=== PATIENT | male | born 1940 | race Caucasian/White ===

== ENCOUNTER 2019-08-10 20:41 | Emergency (ER) | payer MEDICARE, OTHER, SELFPAY ==
[2019-08-10 20:51] VITALS: BP 109/57; PULSE 85; RESP 19; TEMP 38.4; O2SAT 94; BMI 19.4
--- NOTE | 2019-08-10 20:56 | XRR_ITS ---
PROCEDURE INFORMATION: Exam: XR Chest, 2 Views Exam date and time: 08/10/2019 9:25 PM Age: 78 years old Clinical indication: Cough and fever; Prior surgery; Surgery date: 6+ months; Surgery type: Bypass, pacemaker; Patient HX: Cough 1 week, fever 2 days, SOB today; Additional info: Fever/cough TECHNIQUE: Imaging protocol: XR of the chest Views: 2 views. COMPARISON: CR Chest 2 views* [id number] 05/12/2017 3:17 PM FINDINGS: Tubes, catheters and devices: Pacemaker via a left subclavian approach. Lungs: Emphysema Mild airspace disease left lung base adjacent to the moderate subpulmonic effusion. Pleural space: Unremarkable. No pleural effusion. No pneumothorax. Heart/Mediastinum: Surgical clips left hilar region and infrahilar region Bones/joints: Prior sternotomy. XR/XR chest 2V* [id number] IMPRESSION: Mild airspace disease left lung base adjacent to the moderate subpulmonic effusion.
[2019-08-10 21:27] LABS: Basophils # 0.1 10^3/uL (0.0-0.1); Basophils % 0.5 %; Eosinophils % 0.1 %; Hematocrit 46.8 % (42.0-52.0); Hemoglobin 15.4 g/dL (11.7-16.6); Lymphocytes # 1.1 10^3/uL (0.8-4.8); Lymphocytes % 7.4 %; Mean Corpuscular HGB Conc 32.9 g/dL (30.0-36.0); Mean Corpuscular Hemoglobin 31.7 pg (28.0-34.0); Mean Corpuscular Volume 96.3 fL (80-94); Mean Platelet Volume 10.1 fL (7.4-10.4); Monocytes # 0.9 10^3/uL (0.2-0.9); Monocytes % 5.9 %; Neutrophils # 12.7 10^3/uL (1.8-7.7); Neutrophils % 85.6 %; Nucleated Red Blood Cells % 0 %; Platelet Count 213 10^3/cmm (130-400); Red Blood Count 4.86 10^6/uL (4.1-5.3); Red Cell Distribution Width 11.9 % (12.1-15.1); White Blood Count 14.8 10^3/uL (4.0-10.0)
[2019-08-10 21:34] LABS: Alanine Aminotransferase 14 U/L (0-41); Alkaline Phosphatase 112 IU/L (40-130); Aspartate Amino Transferase 22 U/L (0-40); Blood Urea Nitrogen 13 mg/dL (8-23); Calcium 9.3 mg/dL (8.5-10.5); Carbon Dioxide 24 mmol/L (22-29); Chloride 96 mmol/L (98-107); Globulin 2.8 g/dL (1.3-4.6); Glucose 117 mg/dL (65-115); Sodium 133 mmol/L (136-145); Total Bilirubin 0.6 mg/dL (0.15-1.2); Total Protein 6.8 g/dL (6.6-8.7)
[2019-08-10 21:43] VITALS: BP 87/57; PULSE 84; RESP 20; TEMP 38.4; O2SAT 93
--- NOTE | 2019-08-10 21:43 | ED_ITS ---
Entered by Debbie Key, acting as scribe for Jossy Fields Angela Aug 10, 2019 20:41 HPI - Fever General: Chief Complaint: Fever Stated Complaint: COUGH/CONGESTION Time Seen by Provider: 08/10/19 21:15 Source: patient and family Mode of arrival: ambulatory Limitations: no limitations History of Present Illness: HPI Narrative: Mr. Brito is a nice 78-year-old male who comes in the report of cough, congestion and subjective fever at home. His symptoms have been going on for over a week but his fever just started today and was recorded at 99.6 by family. His cough is productive of yellow phlegm and he feels like he has drainage from his sinuses. Patient denies any chest pain, shortness of breath, headache, neck pain or stiffness or any other complaints. MD elicited complaint: fever and other (cough) Onset (ago): day(s) (4 days ago) Exacerbating factors: nothing Relieving factors: nothing Associated symptoms: Reports chills, cough and other (fever); Deny abdominal pain, back/flank pain, chest pain, confusion, diarrhea, dysuria, extremity pain, headache(s), nausea or vomiting Treatments prior to arrival fever: none Review of Systems General: Reports: other (negative unless marked) Const: Reports: chills Eyes: Denies: change in vision or blurry vision ENMT: Denies: throat pain, painful swallowing, hoarseness, ear pain, ear discharge, Change in hearing or nasal discharge Card: Denies: chest pain, palpitations, irregular heart rhythm or syncope Resp: Reports: productive cough; Denies: shortness of breath, wheezing, coughing up blood or chest congestion GI: Denies: abdominal pain, nausea, vomiting, vomiting blood, coffee grounds in vomit, diarrhea, constipation, cramping, blood in stool or black tarry stool : Denies: flank pain, difficulty urinating, painful urination, urinary frequency, urinary urgency, decreased urine ouput, urinary incontinence or blood in urine Musc: Denies: neck pain, back pain, extremity pain, extremity swelling, joint pain, joint swelling, joint warmth or joint stiffness Skin/Breast: Denies: rash, skin tenderness or yellow skin Neuro: Denies: headache, numbness in extremities, weakness in extremities, changes in sensation, lack of coordination, difficulty walking, dizziness, vertigo or confusion Endo: Denies: excessive thirst, tired all the time, cold intolerance, excessive sweating, flushing or hot flashes Andrew/Lymph: Denies: easy bruising, easy bleeding, petechiae or enlarged lymph nodes All/Imm: Denies: hives, throat swelling, tongue swelling, facial swelling or acute wheezing PFSH ED PFSH: Social History Smoking and tobacco status: former smoker Physical Exam Const: COMMON NORMALS: no apparent distress, oriented x3, no limitations, healthy appearing and well nourished EXAM LIMITATIONS: no altered mental status GENERAL APPEARANCE: cooperative, well kempt and well developed ORIENTATION/CONSCIOUSNESS: Yes awake HENMT: COMMON NORMALS: normocephalic, head/scalp atraumatic, hearing grossly normal bilaterally, external ears normal, EAC's normal, external nose normal and moist oral mucous membranes HEAD & SCALP: normal to inspection, normocephalic and atraumatic FACE & SINUS: normal facial exam and face symmetric NOSE: external nose normal and nares normal EXTERNAL EAR: Yes external ears normal EXTERNAL AUDITORY CANAL: EAC's normal MOUTH: oral and palatal mucosa normal and tongue normal Eye: COMMON NORMALS: PERRL, EOMs intact bilaterally, conjunctivae normal and no scleral icterus GENERAL EYE: normal appearance of both eyes and normal light reflex CONJUNCTIVA: Yes conjunctivae normal SCLERA: sclerae normal CORNEA: Yes corneas normal PUPIL: Yes PERRL DIRECT OPHTHALMOSCOPY: Yes normal light reflex Neck/C-Spine: COMMON NORMALS: full ROM, no lymphadenopathy, supple, no meningeal signs and no JVD GENERAL: Yes normal visual inspection and Yes trachea midline CERVICAL SPINE: Yes cervical ROM normal Chest: COMMONS NORMALS: inspection of chest normal and palpation of chest normal Resp: COMMON NORMALS: normal respiratory effort, no retractions, no use of accessory muscles and clear to auscultation bilaterally EFFORT & INSPECTION: Yes able to speak in complete sentences AUSCULTATION: clear to auscultation bilaterally and rhonchi Cardio: COMMON NORMALS: no JVD, regular rate, regular rhythm, S1 normal heart sound, S2 normal heart sound, no gallops, no clicks, no murmurs and no rub JUGULAR VENOUS DISTENTION: no JVD RATE: regular rate RHYTHM: regular rhythm HEART SOUNDS: S1 normal and S2 normal GI: COMMON NORMALS: soft to palpation, non-tender, no hepatosplenomegaly and no masses INSPECTION: Yes normal to inspection PALPATION: Yes soft and Yes no hepatosplenomegaly : COMMON NORMALS: Yes no CVA tenderness BLADDER/KIDNEY EXAM: Yes no CVA tenderness Back/Pelvis: COMMON NORMALS: no CVA tenderness, thoracic and lumbar spine normal to inspection, no thoracic nor lumbar tenderness and thoraco-lumbar ROM normal Extremity: COMMON NORMALS: normal to inspection, full ROM, normal capillary refill, no joint enlargement, no clubbing, cyanosis or edema and no calf tenderness Neuro: COMMON NORMALS: oriented x3, CN's II-XII intact bilaterally, moves all extremities, no focal motor deficits and no sensory deficits noted MENINGEAL SIGNS: Yes no meningeal signs Psych: COMMON NORMALS: mental status grossly normal, thought process normal, cooperative, affect normal, speech normal and activity/motor behavior normal APPEARANCE: Yes well kempt SPEECH: Yes normal speech THOUGHT PROCESS: normal thought process Skin: COMMON NORMALS: no rashes or lesions noted, skin turgor normal, no jaundice, no petechiae and no mottling GENERAL SKIN EXAM: no rashes or lesions noted and turgor normal Course Vital Signs: Vital signs: Vital Signs Temperature 101.1 F H 08/10/19 21:43 Pulse Rate 96 08/11/19 01:12 Respiratory Rate 20 H 08/11/19 01:12 Blood Pressure 110/61 08/11/19 01:12 Pulse Oximetry 94 08/11/19 01:12 MDM - Fever MDM Narrative: Medical decision making narrative: Arrival -patient comes in with flulike symptoms that had a transiently low blood pressure but only 1 in his rebounded. He is denies any other symptoms other than bronchitis and cough. Evaluate the patient secondary to hypotension with a cardiac evaluation as well as a sepsis evaluation. [place] is extensive including influenza, bronchitis, pneumonia, acute coronary syndrome, sepsis among many others. Discharge -patient is feeling better after IV fluids and is ready to go home. His cardiac evaluation is benign. I see no evidence of pneumonia on his chest x-ray but clinically that is the most likely cause as he has rhonchi and a productive cough. He declines to stay in the hospital so I will discharge him home on antibiotics that would cover immunity acquired pneumonia as I think that is probably what would develop. I will place him on Omnicef and doxycycline at home. He and his family agree to return should his symptoms change or worsen in any way. Lab Data: Attestation: I reviewed the patient's lab results. Labs: Lab Results 08/10/19 08/10/19 08/10/19 Range/Units 21:03 21:06 21:06 WBC 14.8 H (4.0-10.0) 10^3/ uL RBC 4.86 (4.1-5.3) 10^6/u L Hgb 15.4 (11.7-16.6) g/dL Hct 46.8 (42.0-52.0) % MCV 96.3 H (80-94) fL MCH 31.7 (28.0-34.0) pg MCHC 32.9 (30.0-36.0) g/dL RDW 11.9 L (12.1-15.1) % Plt Count 213 (130-400) 10^3/c mm MPV 10.1 (7.4-10.4) fL Neut % (Auto) 85.6 % Lymph % (Auto) 7.4 % [place] % (Auto) 5.9 % Eos % (Auto) 0.1 % Baso % (Auto) 0.5 % Neut # (Auto) 12.7 H (1.8-7.7) 10^3/u L Lymph # (Auto) 1.1 (0.8-4.8) 10^3/u L [place] # (Auto) 0.9 (0.2-0.9) 10^3/u L Eos # (Auto) 0.0 (0.0-0.8) 10^3/u L Baso # (Auto) 0.1 (0.0-0.1) 10^3/u L Nucleated RBC % (a uto) 0 % Nucleated RBCs # 0.0 /100WBC Sodium 133 L (136-145) mmol/L Potassium 4.0 (3.5-5.1) mmol/L Chloride 96 L (98-107) mmol/L Carbon Dioxide 24 (22-29) mmol/L Anion Gap 17.0 (5-19) BUN 13 (8-23) mg/dL Creatinine 1.0 (0.7-1.2) mg/dL Glucose 117 H (65-115) mg/dL Calcium 9.3 (8.5-10.5) mg/dL Total Bilirubin 0.6 (0.15-1.2) mg/dL AST 22 (0-40) U/L ALT 14 (0-41) U/L Alkaline Phosphata se 112 (40-130) IU/L Troponin T Baselin e 19 H (0-15) ng/mL Troponin T 120 Min [place] (0-15) ng/mL Delta Troponin T (0-10) ABS# Total Protein 6.8 (6.6-8.7) g/dL Albumin 4.0 (3.5-5.2) g/dL Globulin 2.8 (1.3-4.6) g/dL Urine Color (Yellow) Urine Appearance (CLEAR) Urine pH (5-7) Ur Specific Gravit y (1.005-1.030) Urine Protein (Negative) Urine Glucose (UA) (Normal) Urine Ketones (Negative) Urine Blood (Negative) Urine Nitrate (Negative) Urine Bilirubin (NEGATIVE) Urine Urobilinogen (Negative) mg/dL Ur Leukocyte Rina ase (Negative) Urine RBC (0-2) /hpf Urine WBC (0-5) /hpf Ur Squamous Epith Cells (0-5) Urine Bacteria (NONE) Hyaline Casts Fine Granular Cast s /lpf Urine Mucus Influenza Type A A g (Negative) POC Influenza B Ag (Negative) 08/10/19 08/10/19 08/10/19 Range/Units 22:00 22:25 22:50 WBC (4.0-10.0) 10^3/ uL RBC (4.1-5.3) 10^6/u L Hgb (11.7-16.6) g/dL Hct (42.0-52.0) % MCV (80-94) fL MCH (28.0-34.0) pg MCHC (30.0-36.0) g/dL RDW (12.1-15.1) % Plt Count (130-400) 10^3/c mm MPV (7.4-10.4) fL Neut % (Auto) % Lymph % (Auto) % [place] % (Auto) % Eos % (Auto) % Baso % (Auto) % Neut # (Auto) (1.8-7.7) 10^3/u L Lymph # (Auto) (0.8-4.8) 10^3/u L [place] # (Auto) (0.2-0.9) 10^3/u L Eos # (Auto) (0.0-0.8) 10^3/u L Baso # (Auto) (0.0-0.1) 10^3/u L Nucleated RBC % (a uto) % Nucleated RBCs # /100WBC Sodium (136-145) mmol/L Potassium (3.5-5.1) mmol/L Chloride (98-107) mmol/L Carbon Dioxide (22-29) mmol/L Anion Gap (5-19) BUN (8-23) mg/dL Creatinine (0.7-1.2) mg/dL Glucose (65-115) mg/dL Calcium (8.5-10.5) mg/dL Total Bilirubin (0.15-1.2) mg/dL AST (0-40) U/L ALT (0-41) U/L Alkaline Phosphata se (40-130) IU/L Troponin T Baselin e (0-15) ng/mL Troponin T 120 Min [place] 19.05 H (0-15) ng/mL Delta Troponin T 0.05 (0-10) ABS# Total Protein (6.6-8.7) g/dL Albumin (3.5-5.2) g/dL Globulin (1.3-4.6) g/dL Urine Color Dark yellow (Yellow) Urine Appearance Clear (CLEAR) Urine pH 5 (5-7) Ur Specific Gravit y 1.022 (1.005-1.030) Urine Protein Neg (Negative) Urine Glucose (UA) Norm (Normal) Urine Ketones 1+ H (Negative) Urine Blood Trace H (Negative) Urine Nitrate Negative (Negative) Urine Bilirubin 1+ H (NEGATIVE) Urine Urobilinogen Norm (Negative) mg/dL Ur Leukocyte Rina ase Negative (Negative) Urine RBC 0-4 H (0-2) /hpf Urine WBC None (0-5) /hpf Ur Squamous Epith Cells 0-4 H (0-5) Urine Bacteria 1+ H (NONE) Hyaline Casts 0-4 H Fine Granular Cast s 0-4 H /lpf Urine Mucus 3+ Influenza Type A A g Negative (Negative) POC Influenza B Ag Negative (Negative) EKG Data^: EKG 1: Attestation: I personally reviewed and interpreted this EKG as follows: EKG interpretation date: 08/10/19 EKG interpretation time: 21:59 Interpretation: Normal sinus rhythm at 79 beats a minute, left axis deviation, right bundle branch block, left anterior fascicular block, nonspecific ST-T wave changes similar to previous. EKG 2: Attestation: I personally reviewed and interpreted this EKG as follows: EKG interpretation date: 08/10/19 EKG interpretation time: 23:14 Interpretation: Normal sinus rhythm at 74 beats a minute, left axis deviation, right bundle branch block, left anterior fascicular block, nonspecific ST-T wave changes. Unchanged from previous. Discharge Plan Discharge Patient Disposition: Home, Self-Care Clinical Impression: Fever of unknown origin, Bronchitis Condition: Stable Prescriptions: New doxycycline hyclate 100 mg capsule 100 mg PO BID 10 Days Qty: 20 RF: 0 cefdinir 300 mg capsule 300 mg PO Q12H 10 Days Qty: 20 RF: 0 No Action atorvastatin PO DAILY RF: 0 carvedilol PO BID RF: 0 Discharge Orders: Discharge Order (Routine); Ordered 08/11/19 Ordered By: Jossy Fields Referrals: Abigail Springer MD [Family Provider] - 1-3 days Discharge Diet: Advance as tolerated Discharge Activity: Increase activity as tolerated Patient Instructions: Fever in Adults (ED), Acute Bronchitis (ED) Activity Restrictions/Additional Instructions: Please return to the ER immediately for any of the signs or symptoms listed on your discharge instruction sheets, worsening/changing of your symptoms, you are not getting better as quickly as expected, or for ANY other cause or concerns. Discharge Date/Time: 08/11/19 01:13 Coding Level of Care Code ED Motorman/Woman for Chg Fwd Exam Comprehensive The documentation recorded by the Shahid lawton Bridget Annette, accurately reflects the service I personally performed and the decisions made by Diamond rogers Eli N Aug 10, 2019 20:41
--- NOTE | 2019-08-10 21:46 | ECG_ITS ---
Measurements Intervals [place] Rate: 79 P: 80 IL: 176 QRS: -66 QRSD: 136 T: 80 QT: 444 QTc: 510 SINUS RHYTHM RIGHT BUNDLE BRANCH BLOCK [120+ ms QRS DURATION, UPRIGHT V1, 40+ ms S IN I I/aVL/V4/V5/V6] LEFT ANTERIOR FASCICULAR BLOCK [QRS AXIS <= -45, QR IN I, RS IN II] POSSIBLE SEPTAL MYOCARDIAL INFARCTION , OF INDETERMINATE AGE [30 ms Q WAVE IN V1 V1/V2] Compared to ECG 07/07/2016 12:43:56 Atrial-paced complex(es) or rhythm no longer present Myocardial infarct finding still present Electronically Signed On 08-11-2019 15:16:45 ESTHETICIAN/SPA COORDINATOR by Danny Smyth M.D. [id number] [email or web address]
[2019-08-10] MEDS: sodium chloride 0.9% 1,000 ML 100 ML IV (21:52)
[2019-08-10] MEDS: sodium chloride 0.9% 1,000 ML 999 ML IV (21:54)
[2019-08-10 22:00] VITALS: BP 106/56; PULSE 79; RESP 20
[2019-08-10 22:22] LABS: Troponin(5th) Baseline 19 ng/mL (0-15)
[2019-08-10 22:30] LABS: Influenza A by IFA Negative (Negative); Influenza B by IFA Negative (Negative)
[2019-08-10 23:11] VITALS: BP 99/62; PULSE 74; RESP 18; O2SAT 94
[2019-08-10 23:19] LABS: Troponin 5 2HR 19.05 ng/mL (0-15); Troponin 5 2HR Delta 0.05 ABS# (0-10)
--- NOTE | 2019-08-10 23:46 | ECG_ITS ---
Measurements Intervals [place] Rate: 74 P: 73 IN: 181 QRS: -65 QRSD: 140 T: 79 QT: 465 QTc: 518 SINUS RHYTHM 1 atrially paced complex RIGHT BUNDLE BRANCH BLOCK [120+ ms QRS DURATION, UPRIGHT V1, 40+ ms S IN I/aVL/V4/V5/V6] LEFT ANTERIOR FASCICULAR BLOCK [QRS AXIS <= -45, QR IN I, RS IN II] POSSIBLE SEPTAL MYOCARDIAL INFARCTION , OF INDETERMINATE AGE [30 ms Q WAVE IN V1/V2] Compared to ECG 07/07/2016 12:43:56 Myocardial infarct finding still present Electronically Signed On 08-11-2019 15:20:50 MATERIAL WORKER by Danny Smyth M.D. [id number]
[2019-08-10 23:50] LABS: Urine Appearance Clear (CLEAR); Urine Color Dark Yellow (Yellow)
[2019-08-10 23:51] LABS: Bilirubin Urine 1+ (NEGATIVE); Blood Urine Trace (Negative); Glucose Urine UA Norm (Normal); Ketones Urine 1+ (Negative); Leukocyte Esterase Urine Negative (Negative); Nitrate Urine Negative (Negative); Protein Urine Neg (Negative); Specific Gravity, Urine 1.022 (1.005-1.030); Urobilinogen Urine Norm (Negative); pH Urine 5 (5-7)
[2019-08-10 23:59] LABS: Add Urine Culture? No; Bacteria Urine 1+; Fine Granular Casts Urine 0-4 /lpf; Hyaline Casts Urine 0-4; Mucus Urine 3+; RBC Urine 0-4 /hpf (0-2); Squamous Epithelial Cell Urine 0-4 (0-5)
[2019-08-11] MEDS: sodium chloride 0.9% 1,000 ML 100 ML IV (00:02)
[2019-08-11] MEDS: ondansetron 4 MG Tablet PO (01:06)
[2019-08-11] MEDS: cefTRIAXone 1,000 mg SDV 1000 MG IM (01:06)
[2019-08-11] MEDS: doxycycline 100 mg Tablet 200 MG PO (01:06)
[2019-08-11 01:12] VITALS: BP 110/61; PULSE 96; RESP 20; O2SAT 94
== END 2019-08-11 01:13 | disposition home or self-care (01) ==
PROVIDERS: Emergency Provider Emergency Medicine; Family Provider Internal Medicine
DX: J40 Bronchitis, not specified as acute or chronic (principal); R50.9 Fever, unspecified; Z87.891 Personal history of nicotine dependence
CPT/HCPCS: 36415; 71046; 80053; 81001; 84484; 85025; 87804; 93005; 96360; 96361; 96365; 96372; 96375; 99284; A9270; J0696; J7030; Q0162

== ENCOUNTER 2019-08-17 15:10 | Outpatient (CLI) | payer MEDICARE, OTHER, SELFPAY ==
--- NOTE | 2019-08-17 15:19 | CT_ITS ---
WS: [id number] CT scan of the chest with IV contrast, additional two-dimensional coronal and sagittal reconstruction was performed. 08/17/2019 Clinical Data: COUGH/HEMOPTYSIS/HX OF LUNG CANCER Comparison: CT chest, 06/06/2017. DLP: 359.[address] scans at [facility] use at least one of these dose optimization techniques: automat ed exposure control; mA and/or kV adjustment per patient size (includes targeted exams where dose is matched to clinical indication); or iterative reconstruction. Findings: There is a patchy opacity occupying the left lower lobe which could represent acute pneumonia. There is hyperexpansion of the left lung and a left upper lobectomy has been performed. This is unchanged f rom before. No nodules, masses or effusions are seen. There is a pacemaker with wires ending in the heart. [place] e sternotomy sutures are present. The heart size is normal with no pericardial effusion. The pulmonar y arterial system and thoracic aorta demonstrate no dilatations. There is calcification of the thora cic aorta. The trachea bifurcates into the bronchi. There is no axillary or significant mediastinal a denopathy. The upper abdomen shows gallstones, but otherwise no abnormalities are seen. Degenerative changes of the thoracic vertebral bodies is moderate CT/CT chest w con* [id number] Impression: 1. Diffuse infiltrate in left lower lobe which could represent acute pneumonia. Recommend follow-up chest x-ray in one to 2 days. 2. 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 3. Hyperexpansion of the left lung. 4. Permanent pacemaker unchanged.
[2019-08-17] MEDS: iohexol 300 mg/mL 100 mL Btl 95 ML IV (15:42)
== END 2019-08-17 15:11 | disposition home or self-care (01) ==
PROVIDERS: Family Provider Internal Medicine; Visit Provider Internal Medicine
DX: R91.8 Other nonspecific abnormal finding of lung field (principal); R05 Cough; R04.2 Hemoptysis; Z85.118 Personal history of other malignant neoplasm of bronchus and lung; Z95.1 Presence of aortocoronary bypass graft; Z95.0 Presence of cardiac pacemaker
CPT/HCPCS: 71260

== ENCOUNTER → 2019-08-26 16:21 | Outpatient (BNVA) | payer MEDICARE, OTHER, SELFPAY | PROVIDERS: Family Provider Internal Medicine; Visit Provider Internal Medicine | DX: J18.9 Pneumonia, unspecified organism (principal) | CPT/HCPCS: 71046 ==

== ENCOUNTER → 2019-09-06 10:18 | Outpatient (BNVA) | payer MEDICARE, OTHER, SELFPAY | PROVIDERS: Family Provider Internal Medicine; Visit Provider Internal Medicine | DX: J18.9 Pneumonia, unspecified organism (principal) | CPT/HCPCS: 71046; 85025 ==

== ENCOUNTER 2019-09-27 13:08 | Outpatient (CLI) | payer MEDICARE, OTHER, SELFPAY ==
--- NOTE | 2019-09-27 13:19 | CT_ITS ---
WS: [id number] CT HEAD TECHNIQUE: Noncontrast and contrast-enhanced CT of the head. CLINICAL INFORMATION: MEMORY LOSS COMPARISON: CT July 07, 2016 and MRI November 16, 2014 DLP: 1984.[address] scans at [facility] use at least one of these dose optimization techniques: automat ed exposure control; mA and/or kV adjustment per patient size (includes targeted exams where dose is matched to clinical indication); or iterative reconstruction. FINDINGS: No evidence of intracranial hemorrhage or mass effect. Ventricular system and basal cistern s are patent. Moderate small vessel changes with moderate parenchymal volume loss. Intracranial vascu lar calcification. Chronic lacunar infarct left thalamus. No extra-axial fluid collections. No abnormal intracranial enhancement. Mastoid air cells and paranasal sinuses are well aerated. CT/CT head wo/w con [id number] IMPRESSION: 1. No evidence of intracranial hemorrhage or mass effect. 2. Moderate small vessel changes with moderate parenchymal volume loss. 3. Chronic lacunar infarct in the left thalamus. 4. No abnormal intracranial enhancement. 5. Paranasal sinuses and mastoid air cells are well aerated. 6. Overall no significant changes since 2017
[2019-09-27 13:58] LABS: Blood Urea Nitrogen 15 mg/dL (8-23)
[2019-09-27] MEDS: iohexol 300 mg/mL 100 mL Btl IV (14:07)
== END 2019-09-27 13:09 | disposition home or self-care (01) ==
LOC: RADWPI 13:13
PROVIDERS: Family Provider Internal Medicine; PCP Internal Medicine; Visit Provider Internal Medicine
DX: R41.3 Other amnesia (principal); I63.81 Other cerebral infarction due to occlusion or stenosis of small artery
CPT/HCPCS: 70470; 82565; 84520; Q9967

== ENCOUNTER → 2020-01-13 13:49 | Outpatient (BNVA) | payer MEDICARE, OTHER, SELFPAY | PROVIDERS: Family Provider Internal Medicine; PCP Internal Medicine; Referring Provider Internal Medicine; Visit Provider Dermatology | DX: D48.9 Neoplasm of uncertain behavior, unspecified (principal); L82.0 Inflamed seborrheic keratosis; R20.2 Paresthesia of skin | CPT/HCPCS: 11102; 17000; 88304; 88305; 99203; 99204 ==

== ENCOUNTER → 2020-02-28 08:02 | Outpatient (BNVA) | payer MEDICARE, OTHER, SELFPAY | PROVIDERS: Family Provider Internal Medicine; PCP Internal Medicine; Visit Provider Dermatology | DX: C44.319 Basal cell carcinoma of skin of other parts of face (principal); C44.91 Basal cell carcinoma of skin, unspecified; D48.9 Neoplasm of uncertain behavior, unspecified | CPT/HCPCS: 12052; 17311 ==

== ENCOUNTER → 2020-03-13 10:16 | Outpatient (BNVA) | payer MEDICARE, OTHER, SELFPAY | PROVIDERS: Family Provider Internal Medicine; PCP Internal Medicine; Visit Provider Dermatology | DX: Z48.02 Encounter for removal of sutures (principal) | CPT/HCPCS: 99024 ==

== ENCOUNTER → 2021-11-06 14:10 | Outpatient (BNVA) | payer MEDICARE, OTHER, SELFPAY | PROVIDERS: Family Provider Internal Medicine; PCP Internal Medicine; Visit Provider Internal Medicine Cardiovascular Disease | DX: I48.0 Paroxysmal atrial fibrillation (principal); I25.10 Atherosclerotic heart disease of native coronary artery without angina pectoris; R53.83 Other fatigue; I25.5 Ischemic cardiomyopathy; I10 Essential (primary) hypertension; E78.5 Hyperlipidemia, unspecified; Z95.0 Presence of cardiac pacemaker; Z87.891 Personal history of nicotine dependence | CPT/HCPCS: 99214 ==

== ENCOUNTER 2021-12-05 06:54 | Outpatient (CLI) | payer MEDICARE, OTHER, SELFPAY ==
[2021-12-05 07:11] VITALS: BMI 19.3
--- NOTE | 2021-12-05 07:12 | NMCV_ITS ---
NM shaheen perf SPECT r/s* [id number] Devika Zuñiga Age: 81 Gender: M : 1940 Exam Date: 12/05/2021 07:56 Ordering Phys: Cleve Hylton MD ([email or web address]) Technologist: SANTA Guerrier Exam Location: [facility] Indications: SHORTNESS OF BREATH STRESS TEST [facility] IMAGE PROTOCOL Rest/Stress 1 Lexiscan Day Radiopharmaceutical Dose (mCi) Administration Site Administered by Rest: Tc-99m 10.9 IV SANTA [place] Sestamibi Stress:Tc-99m 32.9 IV SANTA [place] Sestamibi Rest: 05-Dec-2021 60 Discovery 630 Stress: 05-Dec-2021 30 Discovery 630 0.4mg Lexiscan. Images obtained in supine and prone position. SPECT RESULTS Technical Quality: Excellent Raw Data Analysis: Normal Image Corrections: No attenuation or motion correction applied Summed Stress Score: 26 Summed Rest Score: 13 Summed Difference Score: 13 PERFUSION FINDINGS A large area of moderate to severely decreased tracer uptake in the basal, mid and apical anterior, basal and mid anterolateral, basal and mid inferolateral lateral and all of the apical segments. Some reversibility was noted in all these regions, more so in the apical septum and mid anterolateral segments. FUNCTIONAL RESULTS (calculated via Gated SPECT) Stress Image LV EF (%): 33 Stress EDV (mL):125 TID: 1 Stress ESV (mL):84 FUNCTIONAL FINDINGS: Segmental wall motion analysis revealing diffuse hypokinesia of the left ventricle. IMPRESSIONS 1. Myocardial perfusion imaging revealing large area of moderate to severely decreased tracer uptake in the anterior, anterolateral, inferolateral and apical regions with some reversibility in all these regions suggesting myocardial with ischemia in the distribution of all the 3 coronary arteries, more so in the distribution of the left anterior descending and circumflex arteries. 2. Diminished LV ejection fraction of 33%. 3.. Diffuse hypokinesia of the left ventricle 4. Mildly dilated LV cavity with an end-systolic volume of 84 mL. No similar previous studies are available for comparison Dr Cleve Hylton MD [facility] (Electronically Signed) Final Date: 05 December 2021 15:15 S
--- NOTE | 2021-12-05 07:12 | ECG_ITS ---
[facility] Test Date: 2021-12-05 Pat Name: Devika Zuñiga Department: Room: Gender: Male Decision Unit Rn: : 1940 Requested By: Cleve Hylton Order Number: [id number] Ernesto MD: Cleve Hylton M.D. Interpretive Statements NAME OF STUDY: LEXISCAN SESTAMIBI STRESS TEST INDICATION: Chest Pain; Fatigue; Shortness of Breath RESULT TO SPENCER KYLE PROCEDURE: At the baseline, the EKG revealed normal sinus rhythm with right bundle branch block. First-degree AV block. The baseline blood pressure was 128/78 mm Hg with a heart rate of 80 beats/min. Lexiscan was infused over a period of 20 seconds. A total of 0.4 milligrams of Lexiscan was infused. The stress phase was continued for a total of 5 minutes. Heart rate at the end of the stress phase was 72 with a blood pressure 123/72. The EKG at the peak infusion revealed no significant changes. Sestamibi was injected 20 seconds after the Lexiscan infusion. Blood pressure at the end of the recovery phase was 120/68 with a heart rate of 72 per minute. CONCLUSION: 1. No significant EKG changes with the LexiScan infusion 2. No LexiScan induced chest pain or cardiac arrhythmia 3. Normal blood pressure and heart rate response 4. Sestamibi/sestamibi perfusion scan pending; see separate report. Electronically Signed On 12-07-2021 14:47:12 CDT by Cleve Hylton M.D. [id number]
--- NOTE | 2021-12-05 08:30 | USCV_ITS ---
Devika Zuñiga Age: 81 Gender: M : 1940 Exam Date: 12/05/2021 07:43 Ordering Phys: Cleve Hylton MD ([email or web address]) Technologist: Preet East Exam Location: [facility] – [place] Indication: sob BP: 120 / 64 HR: 74 Rhythm: Sinus Technical Quality: Adequate MEASUREMENTS (Male / Female) Normal Values 2D ECHO LV Diastolic Diameter PLAX 4.4 cm 4.2 - 5.9 / 3.9 - 5.3 cm LV Systolic Diameter PLAX 3.5 cm IVS Diastolic Thickness 0.9 cm 0.6 - 1.0 / 0.6 - 0.9 cm IVS Systolic Thickness 0.9 cm LVPW Diastolic Thickness 1.0 cm 0.6 - 1.0 / 0.6 - 0.9 cm LVPW Systolic Thickness 1.4 cm LVOT Diameter 2.0 cm LV Ejection Fraction 2D Teich 42.4 % LV Ejection Fraction MOD 2C 34.5 % LV Ejection Fraction 2C AL 34.3 % LA Diameter 3.1 cm LA Width 2.6 cm LA Height 3.7 cm RA Width 3.3 cm RA Height 3.8 cm Aorta at Sinotubular Diameter 2.4 cm IVC Diameter 1.5 cm M-MODE Aortic Annulus Diameter 2.2 cm LA Ao Ratio MM 1.4 DOPPLER AV Peak Velocity 161.3 cm/s LVOT Peak Velocity 59.3 cm/s AV Area Cont Eq vti 1.2 cm squared AV Area Cont Eq pk 1.2 cm squared MV Peak Velocity 101.0 cm/s MV Area PHT 5.5 cm squared Mitral E to A Ratio 0.8 MV E' Velocity 37.0 cm/s Mitral E to MV E' Ratio 14.7 Mitral E to LV E' Lateral Ratio 16.4 Mitral E to LV E' Septal Ratio 13.5 TR Peak Velocity 237.7 cm/s TR Peak Gradient 22.6 mmHg TR Mean Velocity 172.8 cm/s TR Mean Gradient 13.1 mmHg TR Velocity Time Integral 68.4 cm Right Atrial Pressure 3.0 mmHg Pulmonary Artery Systolic Pressu 25.6 mmHg FINDINGS Left Ventricle Mildly dilated LV cavity. Moderate diffuse hypokinesis of the mid and apical septum, anteroseptum, inferolateral and the LV apex. LV ejection fraction around 34%.Grade I/IV diastolic dysfunction (abnormal relaxation filling pattern), normal to mildly elevated filling pressures. Right Ventricle Catheter/pacemaker wire in the right ventricular cavity. Normal right ventricular size and systolic function. Right Atrium Catheter/pacemaker wire in the right atrial cavity. Left Atrium Mildly increased left atrial size. Mitral Valve Thickened mitral valve with moderate mitral annular calcificationmild mitral valve regurgitation. Aortic Valve Moderate calcification in the aortic valve.[id number] aortic valve regurgitation. Tricuspid Valve Mild tricuspid valve regurgitation. Pulmonic Valve Thickened pulmonary valve Pericardium Normal pericardium without effusion. Aorta Normal aortic annulus size. IVC Not visualized well CONCLUSIONS Mildly dilated LV cavity. Moderate diffuse hypokinesis of the mid and apical septum, anteroseptum, inferolateral and the LV apex. LV ejection fraction around 34%.Grade I/IV diastolic dysfunction (abnormal relaxation filling pattern), normal to mildly elevated filling pressures. Mildly increased left atrial size. Pacemaker wire in the right atrium and right ventricle. Thickened mitral valve with moderate mitral annular calcification. Mild mitral valve regurgitation. Moderate calcification in the aortic valve.[id number] aortic valve regurgitation. Mild tricuspid valve regurgitation. Thickened pulmonary valve Estimated pulmonary artery peak systolic pressure 26 mmHg There is no pericardial effusion. There are no intracardiac masses. Compared to the study from 01/12/2018, there is worsening of the LV systolic function-the ejection fraction dropped from 45-50% to 34%. Dr Cleve Hylton MD [facility] (Electronically Signed) Final Date: 06 December 2021 09:33 S
[2021-12-05] MEDS: regadenoson 0.4 Mg/5 ml Syringe IVP (08:51)
[2021-12-05 09:03] VITALS: BP 126/78; PULSE 61
== END 2021-12-05 06:55 | disposition home or self-care (01) ==
LOC: CDL 06:57
PROVIDERS: PCP Internal Medicine; Visit Provider Internal Medicine Cardiovascular Disease
DX: I08.3 Combined rheumatic disorders of mitral, aortic and tricuspid valves (principal); R06.02 Shortness of breath; R53.83 Other fatigue
CPT/HCPCS: 78452; 93017; 93306; A9500; J2785

== ENCOUNTER → 2021-12-18 10:53 | Outpatient (BNVA) | payer MEDICARE, OTHER, SELFPAY | PROVIDERS: PCP Internal Medicine; Visit Provider Internal Medicine Cardiovascular Disease | DX: I25.5 Ischemic cardiomyopathy (principal); I25.10 Atherosclerotic heart disease of native coronary artery without angina pectoris; Z95.0 Presence of cardiac pacemaker; I11.0 Hypertensive heart disease with heart failure; I50.33 Acute on chronic diastolic (congestive) heart failure; E78.5 Hyperlipidemia, unspecified; Z87.891 Personal history of nicotine dependence; Z95.1 Presence of aortocoronary bypass graft | CPT/HCPCS: 36415; 80048; 83880; 99214 ==

== ENCOUNTER → 2022-01-30 11:23 | Outpatient (BNVA) | payer MEDICARE, OTHER, SELFPAY | PROVIDERS: PCP Internal Medicine; Visit Provider Internal Medicine Cardiovascular Disease | DX: R06.02 Shortness of breath (principal); I25.5 Ischemic cardiomyopathy; E78.5 Hyperlipidemia, unspecified | CPT/HCPCS: 36415; 80048; 83880; 99214 ==

== ENCOUNTER → 2022-02-27 10:34 | Outpatient (BNVA) | payer MEDICARE, OTHER, SELFPAY | PROVIDERS: PCP Internal Medicine; Visit Provider Nurse Practitioner Family | DX: I50.1 Left ventricular failure, unspecified (principal); Z95.1 Presence of aortocoronary bypass graft | CPT/HCPCS: 99214 ==

== ENCOUNTER → 2022-03-11 08:35 | Outpatient (BNVA) | payer MEDICARE, OTHER, SELFPAY | PROVIDERS: PCP Internal Medicine; Visit Provider Internal Medicine Cardiovascular Disease | DX: I50.1 Left ventricular failure, unspecified (principal) | CPT/HCPCS: 80048 ==

== ENCOUNTER → 2022-03-20 10:32 | Outpatient (BNVA) | payer MEDICARE, OTHER, SELFPAY | PROVIDERS: PCP Internal Medicine; Visit Provider Internal Medicine Cardiovascular Disease | DX: Z45.010 Encounter for checking and testing of cardiac pacemaker pulse generator [battery] (principal) | CPT/HCPCS: 93280 ==

== ENCOUNTER → 2022-07-31 11:24 | Outpatient (BNVA) | payer MEDICARE, OTHER, SELFPAY | PROVIDERS: PCP Internal Medicine; Visit Provider Internal Medicine Cardiovascular Disease | DX: R06.02 Shortness of breath (principal); I11.0 Hypertensive heart disease with heart failure; I25.5 Ischemic cardiomyopathy; I35.9 Nonrheumatic aortic valve disorder, unspecified; I82.419 Acute embolism and thrombosis of unspecified femoral vein; Z95.0 Presence of cardiac pacemaker; I25.10 Atherosclerotic heart disease of native coronary artery without angina pectoris; E78.5 Hyperlipidemia, unspecified; Z87.891 Personal history of nicotine dependence | CPT/HCPCS: 80048; 83880; 99214 ==

== ENCOUNTER 2022-08-30 12:48 | Outpatient (CLI) | payer MEDICARE, OTHER, SELFPAY ==
--- NOTE | 2022-08-30 13:00 | USCV_ITS ---
Devika Zuñiga Age: 81 Gender: M : 1940 Exam Date: 08/30/2022 13:45 Ordering Phys: Cleve Hylton MD ([email or web address]) Technologist: MIRANDA [place]am [place] [facility] [place]ication: CHRONIC HEART FAILURE, CARDIOMYOPATHY BP: 98 / 60 HR: 78 Rhythm: Sinus Technical Quality: Adequate MEASUREMENTS (Male / Female) Normal Values 2D ECHO LVOT Diameter 2.0 cm LV Ejection Fraction MOD 2C 40.2 % LV Ejection Fraction 2C AL 40.4 % LA Diameter 2.5 cm LA Width 3.7 cm LA Height 3.6 cm RA Width 3.1 cm RA Height 3.8 cm Aorta at Sinotubular Diameter 2.3 cm IVC Diameter 1.1 cm M-MODE Aortic Annulus Diameter 2.7 cm LA Ao Ratio MM 0.8 DOPPLER AV Peak Velocity 156.3 cm/s LVOT Peak Velocity 87.0 cm/s AV Area Cont Eq vti 1.7 cm squared AV Area Cont Eq pk 1.7 cm squared MV Peak Velocity 93.0 cm/s MV Area PHT 4.6 cm squared Mitral E to A Ratio 0.5 MV E' Velocity 30.5 cm/s Mitral E to MV E' Ratio 7.9 Mitral E to LV E' Lateral Ratio 6.7 Mitral E to LV E' Septal Ratio 9.6 TR Peak Velocity 176.9 cm/s TR Peak Gradient 12.5 mmHg TR Mean Velocity 140.2 cm/s TR Mean Gradient 8.3 mmHg TR Velocity Time Integral 54.3 cm TV Peak E Velocity 46.0 cm/s Right Atrial Pressure 3.0 mmHg Pulmonary Artery Systolic Pressu 15.5 mmHg PV Peak Velocity 79.0 cm/s RV Acceleration Time 0.1 s RV Ejection Time 0.3 s RV AcT/ET 0.4 FINDINGS Left Ventricle Mildly dilated LV cavity with a severe hypokinesia of the LV apex. Moderate diffuse hypokinesia of the inferior wall.Slightly dyskinetic apical inferior wall segment. LV Ejection fraction of 40%.Grade I/IV diastolic dysfunction (abnormal relaxation filling pattern), normal to mildly elevated filling pressures. Right Ventricle Normal right ventricular size and systolic function. Catheter/pacemaker wire in the right ventricular cavity. Right Atrium Catheter/pacemaker wire in the right atrial cavity. Left Atrium The left atrium is normal in size. Mitral Valve Thickened mitral valve. Moderate mitral annular calcification. Mild mitral valve regurgitation. Aortic Valve Thickened aortic valve. Trace aortic valve regurgitation. Tricuspid Valve Mild tricuspid valve regurgitation. Pulmonic Valve No gross abnormalities noted Pericardium No pericardial effusion. Aorta Normal aortic annulus size. IVC The inferior vena cava appears normal. CONCLUSIONS Slightly dilated LV cavity with diminished LV Ejection fraction of 40%. Multiple wall motion abnormalities as mentioned above Type I diastolic dysfunction. Pacemaker wire is noted in the right ventricle and right atrium. Thickened mitral valve. Moderate mitral annular calcification. Mild mitral valve regurgitation. Thickened aortic valve. Trace aortic valve regurgitation. Mild tricuspid valve regurgitation. Estimated pulmonary artery peak systolic pressure 16 mmHg, could be an underestimation because of the poor Doppler signals There is no pericardial effusion. There are no intracardiac masses. Compared to the study from 12/05/2021, there is some improvement in the LV ejection fraction from 34% to 40%. Dr Cleve Hylton MD [facility] (Electronically Signed) Final Date: 02 September 2022 07:57 S
== END 2022-08-30 12:49 | disposition home or self-care (01) ==
LOC: RAD 12:50
PROVIDERS: PCP Internal Medicine; Visit Provider Internal Medicine Cardiovascular Disease
DX: I08.3 Combined rheumatic disorders of mitral, aortic and tricuspid valves (principal); I50.1 Left ventricular failure, unspecified; R06.09 Other forms of dyspnea; Z95.0 Presence of cardiac pacemaker
CPT/HCPCS: 93306

== ENCOUNTER → 2022-10-16 11:54 | Outpatient (BNVA) | payer MEDICARE, OTHER, SELFPAY | PROVIDERS: PCP Internal Medicine; Visit Provider Internal Medicine Cardiovascular Disease | DX: I11.0 Hypertensive heart disease with heart failure (principal); I50.1 Left ventricular failure, unspecified; I25.5 Ischemic cardiomyopathy; R53.83 Other fatigue; E78.5 Hyperlipidemia, unspecified; I25.10 Atherosclerotic heart disease of native coronary artery without angina pectoris; Z95.0 Presence of cardiac pacemaker; I35.9 Nonrheumatic aortic valve disorder, unspecified; Z95.1 Presence of aortocoronary bypass graft; Z87.891 Personal history of nicotine dependence; Z79.82 Long term (current) use of aspirin | CPT/HCPCS: 99214 ==

== ENCOUNTER 2022-12-18 07:24 | Outpatient (CLI) | payer MEDICARE, OTHER, SELFPAY ==
[2022-12-18] VITALS (8 sets, daily range): BP systolic 103–177; BP diastolic 65–74; PULSE 72–79; RESP 12–22; TEMP 36.4; O2SAT 92–99; BMI 20.1
--- NOTE | 2022-12-18 07:30 | XACV_ITS ---
Exam Room: 2 Ht: 168 cm Wt: 57 kg BSA: 1.62 m2 Gender: Male : 1940 Any Known Allergies: Other Exam Priority: Routine Procedure(s): Procedure Description: Diagnostic procedure Procedure Description: Venous Graft Catheterization Procedure Description: CASTRO Graft Catheterization Procedure Description: Coronary Angiography Haja GARRETT; Diagnostic Cath Status: Elective Diagnostic Findings * Previous known occlusion of all [place] coronary arteries with history of two-vessel coronary bypass surgery. Presents with fatigue, change in personality, shortness of breath. * Procedure done from the right common femoral artery. The left main coronary artery exhibits a 40% stenosis proximally. Beyond this the left main is essentially occluded. There is some collateral flow to a very small branch of the circumflex but otherwise there is no [place] flow on the left. The right coronary artery is a large vessel, dominant and contains severe calcified diffuse disease until the acute margin when it is occluded.. * There are 2 bypass grafts. 1 is the left internal mammary to the LAD. It is patent and actually supplies the entire left-sided circulation. There is flow via the LAD up to the left main and down the circumflex. The vein graft is a single vein graft to the distal right coronary artery which is widely patent. Conclusions 1. Occluded [place] coronary arteries. Patent vein graft to the right and patent left internal mammary to the LAD. Recommendations * Continued medical therapy. Interventional RX Recommendation: none Diagnostic RX Recommendation: medical therapy and/or counseling Pressures Phase:Rest AO : 118 / 67 ( 86 ) @ 9:30:00 AM 121 / 63 ( 86 ) @ 9:32:00 AM Clinical Evaluation EBL: 5mL-10mL Procedural Details Procedure Consent Obtained. Admit Source: Out Patient. Pre-Procedure Time Out. Identified patient by full name and date of as verbalized by the patient/guarantor. Does the consent match the physician's order: Yes. Accurate & Complete Informed Consent: Yes. Inpatient/Outpatient History & Physical on Chart: Yes. If H&P is completed, is and addenduem needed: Yes; If yes, is the addendum complete: Yes. Visualize and Verify Site with Patient/Guarantor: N/A. Relevant Radiology Images available: Yes. The risks, benefits, and alternatives of sedation and/or procedure were discussed by physician. The patient agrees to continue. Procedure started. [facility] Clinical Fraility Score: 6: Moderately Frail. Senior Project Engineer Indications: Worsening Angina. Chest Pain Symptom Assessment: Typical Angina Symptoms. Correct patient, site and procedure confirmed by cath team. Current diagnosis: Fatigue, SOB. PERRLA. Strong, equal hand human resources generalist bilaterally. Lungs clear x 5 lobes. IV Site on Arrival: 18 gauge in the left anticubital. IV Fluids: 0.9% NaCl at 75ml/hr. 0 mL infused prior to systems testing laboratory technician. Pre Procedural Pulses: bilateral dorsalis pedis was 2+. Pre Procedural Pulses: bilateral posterior tibial was 1+. Pre Procedural Pulses: bilateral radial was 2+. Oxygen started at 2liters/min via nasal canula. bilateral groins was prepped with chloroprep then draped in the usual sterile fashion. Physician notified. Baseline sample Acquired. HR: 78 BPM. Physician arrived. Physician scrubbed in. Immediate Pre-Procedure Time Out. Correct Patient: Yes; Correct Procedure: Yes; Correct Site: Yes; Correct Patient Position: Yes; Correct Supplies: Yes; Dried Flammable Prep: Yes; Blood Products Available: No;. Lidocaine 1% infiltrated to the right groin. Arterial access obtained. A 6 wolof JL4 catheter in over wire. Multiple views taken of left coronary artery. Catheter removed over the standard wire. A 6 wolof JR4 catheter in over wire. Multiple views taken of right coronary artery. Catheter redirected to CASTRO. Glidewire in through catheter, seated in left subclavian artery. Catheter removed over the glidewire. A 6 wolof IM catheter in over glidewire. Glidewire out. Standard wire in through IM catheter. Wire out. CASTRO to LAD visualized. Catheter removed over the standard wire. A 6 wolof MPA1 catheter in over wire. SVG's to RCA visualized and patent. Catheter out. A Suture was successful obtaining hemostatsis at the Right Femoral artery insertion site. Sheath(s) sutured into position with 2-0 silk and sterile 4x4's and Op-site applied over the site. No oozing or signs and symptoms of hematoma noted. Arterial sheath flushed and connected to tranducer and pressure bag with heparinized saline. Post Procedure: Pulses reassessed and unchanged. PERRLA. Strong, equal hand human resources generalist bilaterally. No VTE prophylaxis required. Medication's Wasted: Heparin = 4000 units. Medication's Wasted: Lidocaine 1% = 2 mL. Medication's Wasted: Other = Fentanyl 50 mcg. Total IV fluids: 38 mL. Post-op diagnosis: CAD. Complications: None. Estimated blood loss: 5mL-10mL. Responsiveness - Normal response to verbal stimuli; alert and oriented, PERRLA. Airway - Unaffected, no intervention required; spontaneous ventilation. Circulation: W/N/L, pulses unchanged. Nausea/Vomiting: N/A. Procedure completed. Patient transferred by bed to CPRU. Vital chart was stopped. Access Site Site: Right Femoral artery Sheath Size: 6 Fr Hemostasis Method: Suture Hemostasis Success: Successful Procedure Medications Start: 8:20 AM Stop: 8:20 AM Medication: Versed Amount: 1 mg Route: I.V. Start: 8:20 AM Stop: 8:20 AM Medication: Fentanyl Amount: 25 mcg Route: I.V. Start: 8:23 AM Stop: 8:23 AM Medication: Fentanyl Amount: 25 mcg Route: I.V. Start: 8:43 AM Stop: 8:43 AM Medication: Versed Amount: 1 mg Route: I.V. I, the attending physician, have reviewed and verified all procedure medications. Yes, all medications given per verbal order History/Risk Factors Hypertension: Yes Dyslipidemia: Yes Peripheral Arterial Disease (PAD): No Myocardial Infarction ([place]): No Obesity: No Renal Disease: No Prior Interventions PCI: No CABG: Yes Valve Surgery: No Report Signatures Finalized by Dr. Danny Smyth MD on 12/18/2022 09:34 AM
[2022-12-18 07:55] LABS: Basophils # 0.2 10^3/uL (0.0-0.1); Basophils % 1.9 %; Eosinophils # 0.4 10^3/uL (0.0-0.8); Eosinophils % 4.6 %; Hematocrit 46.4 % (42.0-52.0); Hemoglobin 14.9 g/dL (11.7-16.6); Lymphocytes # 2.4 10^3/uL (0.8-4.8); Lymphocytes % 30.9 %; Mean Corpuscular HGB Conc 32.1 g/dL (30.0-36.0); Mean Corpuscular Hemoglobin 32.6 pg (28.0-34.0); Mean Corpuscular Volume 101.5 fl (80-94); Monocytes # 1.1 10^3/uL (0.2-0.9); Monocytes % 13.7 %; Neutrophils # 3.78 10^3/uL (1.8-7.7); Neutrophils % 48.6 %; Nucleated Red Blood Cells % 0 %; Platelet Count 235 10^3/cmm (130-400); Red Blood Count 4.57 10^6/uL (4.1-5.3); Red Cell Distribution Width 12.5 % (12.1-15.1); White Blood Count 7.8 10^3/uL (4.0-10.0)
--- NOTE | 2022-12-18 07:55 | PM.HP ---
Providers/Chief Complaint Admitting Physician: genet Primary Care Provider: Abigail Springer MD Chief Complaint: Z95.1, I25.5, R53.83 History of Present Illness Devika Zuñiga is a 82 year old male who has a long history of multiple medical problems including coronary artery disease, prior myocardial infarction and bypass surgery. Several years ago he underwent coronary bypass surgery in [place] which involved the left internal mammary to the LAD and a saphenous vein graft to the distal right coronary artery. At that time his [place] coronary arteries were occluded. Postoperatively he had hypotension and drop his hemoglobin. He was taken back to the operating room which did not reveal any evidence of bleeding. He continued to be hypotensive and his chest was opened a second time after the initial surgery. It was thought his hypotension was due to transient reduction in his left ventricular function because at that time his ejection fraction had dropped to 20% causing cardiogenic shock. He required lengthy left ventricular support and lengthy ventilation with ECMO assistance. It took some time for him to recover. He was in a correction facility for quite a while. A pacemaker was required during that hospitalization. His other health problems include hypertension, COPD, history of lung cancer status post lobectomy, dyslipidemia, pulmonary hypertension, ischemic cardiomyopathy, history of deep vein thrombosis and atrial fibrillation. He has been complaining of fatigue and feeling exhausted after walking only about 100 feet. He becomes so short of breath and so exhausted that he has to stop. He is not having chest discomfort. Sestamibi examination a year ago showed defects in multiple areas with marginal reversibility. His primary lcsw Dr. Hylton ordered an echo in August. This revealed an ejection fraction of 40% with regional wall motion abnormalities and no significant valvular disease. The EF is an improvement from previous evaluations. In early October his primary care provider called me and asked me to see him, consider coronary angiography. At that time we did not have his bypass surgery report information. I saw him on October 16 and we agreed to make an attempt to perform coronary angiography. To my knowledge no other testing has been done in the interim. He is here today for the angiogram. Review of Systems Narrative: Shortness of breath, fatigue Medications/Allergies Home Medications Medication Instructions Recorded Confirmed Last Taken Type aspirin 81 mg tablet,delayed 81 mg PO DAILY 11/02/20 12/16/22 Unknown History release (Adult Aspirin Regimen) calcium carbonate 600 mg calcium 600 mg PO DAILY 11/02/20 12/16/22 Unknown History (1,500 mg) tablet (Calcium) donepezil 10 mg tablet 10 mg PO BID 11/02/20 12/16/22 Unknown History levothyroxine 25 mcg tablet 25 mcg PO DAILY 11/02/20 12/16/22 Unknown History magnesium 200 mg tablet 400 mg PO DAILY 11/02/20 12/16/22 Unknown History mecobalamin (vitamin B12) 1,000 1,000 mcg sublingual DAILY 11/02/20 12/16/22 Unknown History mcg disintegrating tablet,sublingual vitamins A,C,[id number] 4,296 1 cap PO BID 11/02/20 12/16/22 Unknown History mcg-226 mg-90 mg capsule (PreserVision AREDS) ranolazine 500 mg tablet,extended 500 mg PO BID 60 days #120 tabs 12/18/21 12/16/22 Unknown Rx release,12 hr (Ranexa) citalopram 10 mg tablet 10 mg PO DAILY 01/30/22 12/16/22 Unknown History montelukast 10 mg tablet 10 mg PO DAILY 01/30/22 12/16/22 Unknown History sacubitril 49 mg-valsartan 51 mg 1 tab PO BID #180 tabs 05/03/22 12/16/22 Unknown Rx tablet metoprolol succinate 25 mg See Rx Instructions .Route 06/12/22 12/16/22 Unknown Rx tablet,extended release 24 hr .COMPLEX #90 tabs furosemide 20 mg tablet 20 mg PO DAILY edema; weight gain 08/28/22 12/16/22 Unknown Rx #90 tabs potassium chloride 8 mEq 8 meq PO DAILY PRN with furosemide 08/28/22 12/16/22 Unknown Rx tablet,extended release #30 tabs atorvastatin 20 mg tablet 40 mg PO DAILY 10/16/22 12/16/22 Unknown History mirtazapine 7.5 mg tablet 7.5 mg PO DAILY 10/16/22 12/16/22 Unknown History Allergies Allergy/AdvReac Type Severity Reaction Status Date / Time atorvastatin Allergy leg cramps Verified 10/16/22 11:59 morphine Allergy ADR-Irritab Verified 10/16/22 11:59 le oxycodone [From Percocet] Allergy ADR-Halluci Verified 10/16/22 11:59 nating PFSH Acute PFSH: Medical History (Updated 12/18/22 @ 08:05 by Danny Smyth MD) Aortic valve disease Atrial fibrillation Pt has easy bruising CAD (coronary artery disease) COPD (chronic obstructive pulmonary disease) DVT (deep venous thrombosis) Heart failure, left, 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 SSS (sick sinus syndrome) Surgical History (Updated 12/18/22 @ 08:05 by Danny Smyth MD) History of lobectomy of lung History of open heart surgery Hx of CABG Family History Grandfather CAD (coronary artery disease) Father Cancer Grandmother Diabetes CAD (coronary artery disease) Family/Other Lung disease Brother Lung disease Denies family history of Clotting disorder Dementia Chronic kidney disease (CKD) Suicide Anesthesia complication Bleeding disorder Stroke Social History Smoking and tobacco status: former smoker (1968) Alcohol intake: current Alcohol intake frequency: few times a week Alcohol type: beer Physical Exam Narrative: GENERAL: In general he looks comfortable at rest. HEENT: Exam within normal limits. NECK: Supple without jugular vein distention. The carotid upstroke is normal without bruits. BACK: Exam normal. LUNGS: Clear. HEART: Regular rate and rhythm. ABDOMEN: Benign without organomegaly or tenderness. EXTREMITIES: No edema. NEUROLOGIC: Exam normal. SKIN: Unremarkable. 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%: (3) Ischemic cardiomyopathy: (4) Fatigue: (5) Dyslipidemia: (6) Benign essential HTN: (7) Atherosclerosis of coronary artery of [place] heart without angina pectoris: Qualifiers: Coronary Disease-Associated Artery/Lesion type: [place] artery Qualified Code(s): I25.10 - Atherosclerotic heart disease of [place] coronary artery without angina pectoris (8) DVT (deep venous thrombosis): Qualifiers: DVT location: lower extremity Affected thrombotic vein of extremity: femoral Chronicity: unspecified Laterality: unspecified laterality Qualified Code(s): I82.419 - Acute embolism and thrombosis of unspecified femoral vein (9) Pacemaker: (10) Atrial fibrillation: Qualifiers: Atrial fibrillation type: paroxysmal Qualified Code(s): I48.0 - Paroxysmal atrial fibrillation (11) History of lobectomy of lung: (12) COPD (chronic obstructive pulmonary disease): (13) SSS (sick sinus syndrome): Plan Coronary angiography today as an outpatient. Attestations Medical Necessity Statement*: Outpatient in a bed. 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% I50.1 Ischemic cardiomyopathy I25.5 Fatigue R53.83 Dyslipidemia E78.5 Benign essential HTN I10 Atherosclerosis of coronary artery of [place] heart without angina pectoris I25.10 Coronary Disease-Associated Artery/Lesion type: [place] artery DVT (deep venous thrombosis) I82.419 DVT location: lower extremity Affected thrombotic vein of extremity: femoral Chronicity: unspecified Laterality: unspecified laterality Pacemaker Z95.0 Atrial fibrillation I48.0 Atrial fibrillation type: paroxysmal History of lobectomy of lung Z90.2 COPD (chronic obstructive pulmonary disease) J44.9 SSS (sick sinus syndrome) I49.5
[2022-12-18] MEDS: diphenhydrAMINE 50 mg Capsule PO (07:57)
[2022-12-18 08:10] LABS: Blood Urea Nitrogen 20 mg/dL (8-23); Calcium 8.8 mg/dL (8.5-10.5); Carbon Dioxide 26 mmol/L (22-29); Chloride 104 mmol/L (98-107); Glucose 82 mg/dL (65-115); Osmolality Calculated 290 mOsm/kg (285-295); Sodium 139 mmol/L (136-145)
--- NOTE | 2022-12-18 09:28 | PC.NURSE ---
received pt from agriculture laborer post diagnostic left heart cath. pt returned with a femoral sheath connected to pressure bag. pt alert and oriented x3. pt complains of no pain. no hematoma or bruising noted. pt to recover here for approximately 30 mins and then to the floor to dc later today. pt placed on monitor and will be monitored per protocol.
--- NOTE | 2022-12-18 10:02 | PM.DCS ---
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%: Status: Acute (3) Ischemic cardiomyopathy: Status: Acute (4) Fatigue: Status: Acute (5) Dyslipidemia: Status: Acute (6) Benign essential HTN: Status: Acute (7) Atherosclerosis of coronary artery of [place] heart without angina pectoris: Status: Acute Qualifiers: Coronary Disease-Associated Artery/Lesion type: [place] artery Qualified Code(s): I25.10 - Atherosclerotic heart disease of [place] coronary artery without angina pectoris Permanent problem details: Patient apparently had a very complicated past operative course at the [facility]. According the patient, he developed myocardial infarction postoperatively and went into cardiogenic shock. He was on balloon pump couple of times followed by ECMO. he developed bilateral DVT. He was on a wound VAC for a long time in both groins. He also had to be on a feeding tube for a prolonged period of time. He had a remarkable improvement (8) DVT (deep venous thrombosis): Status: Acute Qualifiers: DVT location: lower extremity Affected thrombotic vein of extremity: femoral Chronicity: unspecified Laterality: unspecified laterality Qualified Code(s): I82.419 - Acute embolism and thrombosis of unspecified femoral vein (9) Pacemaker: Status: Acute Permanent problem details: . (10) Atrial fibrillation: Status: Acute Qualifiers: Atrial fibrillation type: paroxysmal Qualified Code(s): I48.0 - Paroxysmal atrial fibrillation Permanent problem details: Pt has easy bruising (11) History of lobectomy of lung: Status: Acute (12) COPD (chronic obstructive pulmonary disease): Status: Acute (13) SSS (sick sinus syndrome): Status: Acute Reason for Visit Reason for Visit: Z95.1, I25.5, R53.83 Brief History: Patient has a long history of multiple medical problems including coronary disease, ischemic cardiomyopathy, history of bypass surgery, COPD, lung cancer post lobectomy among many others. He presented with fatigue and extreme shortness of breath. No real chest pain. Due to the severity of his symptoms coronary angiography was requested. Hospital Course Hospital Course Angiography was performed from the right groin. His [place] coronary arteries are essentially occluded. Both grafts are patent. The left internal mammary to the LAD is patent and supplies the LAD, distal left main, circumflex. The vein graft to the right is patent to the posterior descending artery. No left ventriculography was performed. Previous echo in August showed an improvement in his ejection fraction up to 40%. There were no complications. At the time of discharge there is no bleeding or hematoma of the right groin. Physical Exam Narrative: GENERAL: In general he appears well HEENT: Exam within normal limits. NECK: Supple without jugular vein distention. The carotid upstroke is normal without bruits. BACK: Exam normal. LUNGS: Clear. HEART: Regular rate and rhythm. ABDOMEN: Benign without organomegaly or tenderness. EXTREMITIES: No edema. NEUROLOGIC: Exam normal. SKIN: Unremarkable. Discharge Data Studies Completed and Pending Completed Studies During Hospitalization Category Date Time Status ELEVATOR BUILDER request for service Routine Exams 12/18/22 07:30 Completed Laboratory Results WBC 7.8 10^3/uL (4.0-10.0) 12/18/22 07:43 RBC 4.57 10^6/uL (4.1-5.3) 12/18/22 07:43 Hgb 14.9 g/dL (11.7-16.6) 12/18/22 07:43 Hct 46.4 % (42.0-52.0) 12/18/22 07:43 MCV 101.5 fl (80-94) H 12/18/22 07:43 MCH 32.6 pg (28.0-34.0) 12/18/22 07:43 MCHC 32.1 g/dL (30.0-36.0) 12/18/22 07:43 RDW 12.5 % (12.1-15.1) 12/18/22 07:43 Plt Count 235 10^3/cmm (130-400) 12/18/22 07:43 MPV 10.0 fL (7.4-10.4) 12/18/22 07:43 Neut % (Auto) 48.6 % 12/18/22 07:43 Lymph % (Auto) 30.9 % 12/18/22 07:43 [place] % (Auto) 13.7 % 12/18/22 07:43 Eos % (Auto) 4.6 % 12/18/22 07:43 Baso % (Auto) 1.9 % 12/18/22 07:43 Neut # (Auto) 3.78 10^3/uL (1.8-7.7) 12/18/22 07:43 Lymph # (Auto) 2.4 10^3/uL (0.8-4.8) 12/18/22 07:43 [place] # (Auto) 1.1 10^3/uL (0.2-0.9) H 12/18/22 07:43 Eos # (Auto) 0.4 10^3/uL (0.0-0.8) 12/18/22 07:43 Baso # (Auto) 0.2 10^3/uL (0.0-0.1) H 12/18/22 07:43 Nucleated RBC % (auto) 0 % 12/18/22 07:43 Nucleated RBCs # 0.0 /100WBC 12/18/22 07:43 Sodium 139 mmol/L (136-145) 12/18/22 07:43 Potassium 4.0 mmol/L (3.5-5.1) 12/18/22 07:43 Chloride 104 mmol/L (98-107) 12/18/22 07:43 Carbon Dioxide 26 mmol/L (22-29) 12/18/22 07:43 Anion Gap 13.0 (5-19) 12/18/22 07:43 BUN 20 mg/dL (8-23) 12/18/22 07:43 Creatinine 1.2 mg/dL (0.7-1.2) 12/18/22 07:43 GFR Calculation Not Reportable 12/18/22 07:43 Glucose 82 mg/dL (65-115) 12/18/22 07:43 Calculated Osmolality 290 mOsm/kg (285-295) 12/18/22 07:43 Calcium 8.8 mg/dL (8.5-10.5) 12/18/22 07:43 Procedures Performed Coronary angiography, graft angiography including saphenous vein graft angiography and left internal mammary artery angiography. Vitals Last Vital Signs Temp 97.6 F 12/18/22 08:00 Pulse 72 12/18/22 09:45 Resp 12 12/18/22 09:45 BP 105/73 12/18/22 09:45 Pulse Ox 95 12/18/22 09:45 O2 Del Method Room Air 12/18/22 09:45 Discharge Plan Discharge Patient Disposition: Home Prescriptions: Continued lidocaine-epinephrine 1 %-1:100,000 solution 1.5 ml SUBCUT ONCE Qty: 20 0RF donepezil 10 mg tablet 10 mg PO BID aspirin [Adult Aspirin Regimen] 81 mg tablet,delayed release (DR/EC) 81 mg PO DAILY levothyroxine 25 mcg tablet 25 mcg PO DAILY magnesium 200 mg tablet 400 mg PO DAILY calcium carbonate [Calcium 600] 600 mg calcium (1,500 mg) tablet 600 mg PO DAILY mecobalamin (vitamin B12) 1,000 mcg tablet,disintegrating 1,000 mcg sublingual DAILY Rx Instructions: place tablet under tongue and allow to dissolve for at least30 secs before swallowing PreserVision AREDS [id number] teic-na-heig capsule 1 cap PO BID citalopram 10 mg tablet 10 mg PO DAILY montelukast 10 mg tablet 10 mg PO DAILY atorvastatin 20 mg tablet 40 mg PO DAILY mirtazapine 7.5 mg tablet 7.5 mg PO DAILY ranolazine [Ranexa] 500 mg tablet extended release 12 hr 500 mg PO BID 60 Days Qty: 120 5RF sacubitril-valsartan 49-51 mg tablet 1 tab PO BID Qty: 180 1RF metoprolol succinate 25 mg tablet extended release 24 hr See Rx Instructions .ROUTE .COMPLEX Qty: 90 3RF Dose Instruction: TAKE 1 TABLET BY MOUTH DAILY Rx Instructions: TAKE 1 TABLET BY MOUTH DAILY furosemide 20 mg tablet 20 mg PO DAILY Qty: 90 1RF potassium chloride 8 mEq tablet extended release 8 meq PO DAILY PRN (Reason: with furosemide) Qty: 30 2RF Rx Instructions: To be taken with furosemide Discharge Orders: Discharge Order (Routine); Ordered 12/18/22 Ordered By: Danny Smyth Referrals: Cleve Hylton MD [Physician] - 6 months Amanda Aguilar FNP [Nurse Practitioner] - 7-10 days (Check right groin and chemistry panel) Diet: Cardiac Activity: Limit activity as instructed Activity Restrictions/Additional Instructions: No lifting over 5 pounds for 2 days Discharge Attestations Time Spent in Discharge Care*: greater than 30 min Quality Metrics Clinical Quality Measures [ No reported AMI, CVA or VTE this stay] Coding Level of Care Code 44993 Total time (in minutes) for Discharge: 35 Diagnoses Hx of CABG Z95.1 Heart failure, left, 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% I50.1 Ischemic cardiomyopathy I25.5 Fatigue R53.83 Dyslipidemia E78.5 Benign essential HTN I10 Atherosclerosis of coronary artery of [place] heart without angina pectoris I25.10 Coronary Disease-Associated Artery/Lesion type: [place] artery DVT (deep venous thrombosis) I82.419 DVT location: lower extremity Affected thrombotic vein of extremity: femoral Chronicity: unspecified Laterality: unspecified laterality Pacemaker Z95.0 Atrial fibrillation I48.0 Atrial fibrillation type: paroxysmal History of lobectomy of lung Z90.2 COPD (chronic obstructive pulmonary disease) J44.9 SSS (sick sinus syndrome) I49.5
--- NOTE | 2022-12-18 10:45 | PC.NURSE ---
Sheath pulled at 1006. For the first 5 minutes television script writer and secondary nurse had difficulty controlling bleeding so Gianna Gu RN Manager was called to come help. By 1011 bleeding was controlled and pressure removed at 1032. Gauze was placed and tegaderm applied. Patient resting comfortable in bed with at bedside. Vitals are stable and patient reports minimal discomfort.
--- NOTE | 2022-12-18 17:06 | PC.NURSE ---
Patient discharged at 1653. Patient ambulated to surgical services entrance with , nurse, and daughter. No complaints, vitals stable, education given and understood about not forgetting to take Entresto and not to lift anything heavy or over exert for the next 2 days.
== END 2022-12-18 17:06 | disposition home or self-care (01) ==
LOC: CCL 07:25 → CSU 09:56
PROVIDERS: PCP Internal Medicine; Visit Provider Internal Medicine Cardiovascular Disease
DX: R06.02 Shortness of breath (principal); R53.83 Other fatigue; Z95.1 Presence of aortocoronary bypass graft; I25.5 Ischemic cardiomyopathy; E78.5 Hyperlipidemia, unspecified; I25.10 Atherosclerotic heart disease of native coronary artery without angina pectoris; Z90.2 Acquired absence of lung [part of]; J44.9 Chronic obstructive pulmonary disease, unspecified; Z95.0 Presence of cardiac pacemaker; Z79.82 Long term (current) use of aspirin; Z86.718 Personal history of other venous thrombosis and embolism; I49.5 Sick sinus syndrome; I50.1 Left ventricular failure, unspecified; Z87.891 Personal history of nicotine dependence; I11.0 Hypertensive heart disease with heart failure
CPT/HCPCS: 36415; 80048; 85025; 93455; 96365; 99152; 99153; C1769; C1887; C1894; J1644; J2250; J3010; J7030; Q0163; Q9967

== ENCOUNTER → 2022-12-31 13:28 | Outpatient (BNVA) | payer MEDICARE, OTHER, SELFPAY | PROVIDERS: PCP Internal Medicine; Visit Provider Nurse Practitioner Family | DX: I25.10 Atherosclerotic heart disease of native coronary artery without angina pectoris (principal) | CPT/HCPCS: 99213 ==

== ENCOUNTER → 2023-08-08 14:47 | Outpatient (BNVA) | payer MEDICARE, OTHER, SELFPAY | PROVIDERS: PCP Internal Medicine; Visit Provider Internal Medicine Cardiovascular Disease | DX: Z45.010 Encounter for checking and testing of cardiac pacemaker pulse generator [battery] (principal) | CPT/HCPCS: 93296 ==

== ENCOUNTER → 2024-02-04 09:00 | Outpatient (BNVA) | payer MEDICARE, OTHER, SELFPAY | PROVIDERS: PCP Internal Medicine; Visit Provider Internal Medicine Cardiovascular Disease | DX: Z45.010 Encounter for checking and testing of cardiac pacemaker pulse generator [battery] (principal) | CPT/HCPCS: 93296 ==

== ENCOUNTER → 2024-03-29 09:59 | Outpatient (BNVA) | payer MEDICARE, OTHER, SELFPAY | PROVIDERS: PCP Internal Medicine; Visit Provider Internal Medicine Cardiovascular Disease | DX: I25.10 Atherosclerotic heart disease of native coronary artery without angina pectoris (principal); Z95.0 Presence of cardiac pacemaker; I35.9 Nonrheumatic aortic valve disorder, unspecified; E78.5 Hyperlipidemia, unspecified; I25.5 Ischemic cardiomyopathy; Z87.891 Personal history of nicotine dependence; I11.0 Hypertensive heart disease with heart failure; I50.1 Left ventricular failure, unspecified | CPT/HCPCS: 99214 ==

== ENCOUNTER 2024-04-12 11:52 | Outpatient (CLI) | payer MEDICARE, OTHER, SELFPAY ==
--- NOTE | 2024-04-12 11:58 | XRR_ITS ---
PROCEDURE INFORMATION: Exam: XR Left Ribs Exam date and time: 04/12/2024 12:15 PM Age: 83 years old Clinical indication: Chest wall pain; Left; Prior surgery; Surgery date: 6+ months; Surgery type: Bypass, pacemaker; Patient HX: HX of lung cancer; Additional info: Left side rib pain TECHNIQUE: Imaging protocol: Radiologic exam of the left ribs. Views: 2 views. Total images: 5 COMPARISON: CR XR chest 2V* [id number] 09/06/2019 10:25 AM FINDINGS: Tubes, catheters and devices: Pacing leads overlie the left heart. Bones/joints: Bipolar cardiac pacemaker and findings of prior median sternotomy slice CABG similar to previous. Left-sided ribs demonstrate no evident acute fracture. ..Left 6th rib defect posteriorly consistent with sequelae of prior surgery, demonstrated on prior CT. Lungs: No pulmonary vascular congestion evident. Stable nonspecific parenchymal density at the left lung base. Pleural space: Stable elevation left hemidiaphragm. Stable blunting of the costophrenic angles bilaterally. No evidence of left-sided pneumothorax. Soft tissues: No acute soft tissue abnormality identified XR/XR ribs LT 2V* [id number] IMPRESSION: No acute abnormality of the left-sided ribs identified.
== END 2024-04-12 11:53 | disposition home or self-care (01) ==
LOC: RAD 11:54
PROVIDERS: PCP Internal Medicine; Visit Provider Internal Medicine
DX: R91.8 Other nonspecific abnormal finding of lung field (principal); R07.81 Pleurodynia; Z85.118 Personal history of other malignant neoplasm of bronchus and lung
CPT/HCPCS: 71100

== ENCOUNTER 2024-04-22 06:49 | Outpatient (CLI) | payer MEDICARE, OTHER, SELFPAY ==
--- NOTE | 2024-04-22 07:00 | USCV_ITS ---
Devika Zuñiga Age: 83 Gender: M : 1940 Exam Date: 04/22/2024 07:05 Ordering Phys: Cleve Hylton MD ([email or web address]) Technologist: Exam Location: [facility] [place] Indication: ef BP: 110 / 70 HR: Rhythm: Sinus Technical Quality: Adequate MEASUREMENTS (Male / Female) Normal Values 2D ECHO LV Diastolic Diameter PLAX 5.2 cm 4.2 - 5.9 / 3.9 - 5.3 cm IVS Diastolic Thickness 0.9 cm 0.6 - 1.0 / 0.6 - 0.9 cm IVS Systolic Thickness 0.9 cm LVPW Diastolic Thickness 1.2 cm 0.6 - 1.0 / 0.6 - 0.9 cm LVPW Systolic Thickness 1.2 cm LVOT Diameter 2.0 cm LV Ejection Fraction 2D Teich 33.3 % LV Ejection Fraction MOD 4C 42.2 % LV Ejection Fraction MOD 2C 54.4 % LV Ejection Fraction 2C AL 53.9 % LA Diameter 3.2 cm Aorta at Sinotubular Diameter 4.0 cm IVC Diameter 1.3 cm M-MODE LA Ao Ratio MM 1.2 AV Cusp Separation MM 1.9 cm FINDINGS Left Ventricle Mildly dilated LV cavity. Mild diffuse hypokinesis of the left ventricle with aneurysmal dilatation of the LV apex. LV ejection fraction of 42% Right Ventricle Normal right ventricular size and systolic function. Catheter/pacemaker wire in the right ventricular cavity. Right Atrium Normal right atrial size. Catheter/pacemaker wire in the right atrial cavity. Left Atrium Normal left atrial size. Mitral Valve Mild mitral annular calcification. Thickened mitral valve. Aortic Valve Thickened aortic valve. Tricuspid Valve No gross abnormalities noted Pulmonic Valve Pulmonic valve not well visualized. Pericardium No pericardial effusion. Aorta Normal aortic annulus size. IVC Normal inferior vena cava. CONCLUSIONS Mildly dilated LV cavity. Mild diffuse hypokinesis of the left ventricle with aneurysmal dilatation of the LV apex. LV ejection fraction of 42%. Normal right ventricular size and systolic function. PossMild mitral annular calcification. Thickened mitral valve. ible pacemaker wire in the right atrium right ventricle. Thickened aortic valve. There is no pericardial effusion. There are no intracardiac masses. Compared to the study from 7022, there may not be significant change Dr Cleve Hylton MD FACC (Electronically Signed) Final Date: 26 April 2024 08:48 S
== END 2024-04-22 06:50 | disposition home or self-care (01) ==
PROVIDERS: PCP Internal Medicine; Visit Provider Internal Medicine Cardiovascular Disease
DX: I42.9 Cardiomyopathy, unspecified (principal); I34.81 Nonrheumatic mitral (valve) annulus calcification
CPT/HCPCS: 93308

== ENCOUNTER → 2024-05-12 11:09 | Outpatient (BNVA) | payer MEDICARE, OTHER, SELFPAY | PROVIDERS: PCP Internal Medicine; Visit Provider Internal Medicine Cardiovascular Disease | DX: Z45.010 Encounter for checking and testing of cardiac pacemaker pulse generator [battery] (principal) | CPT/HCPCS: 93296 ==

== ENCOUNTER 2024-06-22 13:54 | Outpatient (CLI) | payer MEDICARE, OTHER, SELFPAY ==
--- NOTE | 2024-06-22 14:00 | CT_ITS ---
WS: [id number] CT ABDOMEN AND PELVIS WITH AND WITHOUT CONTRAST HISTORY: CARCINOMA IN SITU OF BLADDER TECHNIQUE: Unenhanced 5 mm axial imaging first performed through the abdomen. Post contrast imaging t hrough the abdomen and pelvis. Oral contrast has not been provided. Sagittal and coronal reformats a re submitted. All CT scans at [facility] [place] use at least one of these dose optimization techniqu es: automated exposure control; mA and/or kV adjustment per patient size (includes targeted exams whe re dose is matched to clinical indication); or iterative reconstruction. CONTRAST: Omnipaque 350; 95 mL IV. DLP: 912.53 mGy.cm COMPARISON: None available. Chronic emphysematous changes at the lung bases. Normal size heart. Small hiatal hernia. RIGHT kidney: 10.6 cm in length. No renal stones or obstruction. Normal enhancement throughout the ki dney with good excretion. No renal mass or uroepithelial lesion. The ureter is well opacified to the urinary bladder. LEFT kidney: 9.9 cm in length. Mild perinephric stranding with no calcification or stone. Small extra renal pelvis. No enhancing mass. No uroepithelial lesions. LEFT ureter is opacified in nearly its ent rocio length except distally. Urinary bladder: Minimally distended bladder. There is asymmetric bladder wall thickening greatest at the apex measuring up to 7 mm is slightly greater on the LEFT. There is no focal area of enhancement . Prostate gland is markedly enlarged encroaching into the bladder. Normal liver and spleen. Cholelithiasis without acute cholecystitis. No intrahepatic duct dilatation. Normal portal vein. No adrenal mass. Moderate atherosclerotic plaque abdominal aorta with ectasia. H eavy dense calcified plaque continues into the iliac arteries. Extensive plaque in the common, international marketing executive al and external iliac arteries and femoral arteries. Mild narrowing of the SMA. No GI tract obstruction. Mild sigmoid diverticulosis. No ascites. Advanced scoliosis and degenerative changes in the lumbar spine. 6 mm anterolisthesis of L4. Severe d isc space narrowing and desiccation with vertebral body changes at L2-3, L3-4 and L4-5. CT/CT abdomen pelvis wo/w [id number] IMPRESSION: 1. No renal calcifications or obstruction. 2. No uroepithelial lesion in the renal pelves or ureters. 3. Very mild asymmetric soft tissue thickening of the bladder wall, greatest a t the apex. Questionable minimal enhancement at the LEFT apex. 4. Markedly enlarged heterogeneous prostate gland. 5. Cholelithiasis without acute cholecystitis. 6. Advanced degenerative changes in the lumbar spine.
[2024-06-22 14:29] LABS: Blood Urea Nitrogen 13 mg/dL (8-23)
[2024-06-22] MEDS: iohexol 350 mg/mL 500 mL Btl (per mL) IV (14:33)
== END 2024-06-22 13:55 | disposition home or self-care (01) ==
LOC: RAD 13:58
PROVIDERS: PCP Internal Medicine; Visit Provider Nurse Practitioner Family
DX: D09.0 Carcinoma in situ of bladder (principal); R93.41 Abnormal radiologic findings on diagnostic imaging of renal pelvis, ureter, or bladder; N40.0 Benign prostatic hyperplasia without lower urinary tract symptoms; K80.20 Calculus of gallbladder without cholecystitis without obstruction; M47.896 Other spondylosis, lumbar region; K44.9 Diaphragmatic hernia without obstruction or gangrene; R91.8 Other nonspecific abnormal finding of lung field; R93.422 Abnormal radiologic findings on diagnostic imaging of left kidney; I70.0 Atherosclerosis of aorta; I77.811 Abdominal aortic ectasia; I70.8 Atherosclerosis of other arteries; I77.1 Stricture of artery; K57.90 Diverticulosis of intestine, part unspecified, without perforation or abscess without bleeding; M41.86 Other forms of scoliosis, lumbar region; M43.16 Spondylolisthesis, lumbar region; M48.061 Spinal stenosis, lumbar region without neurogenic claudication
CPT/HCPCS: 74178; 82565; 84520

== ENCOUNTER → 2024-09-01 10:00 | Outpatient (BNVA) | payer MEDICARE, OTHER, SELFPAY | PROVIDERS: PCP Internal Medicine; Visit Provider Internal Medicine Cardiovascular Disease | DX: Z45.018 Encounter for adjustment and management of other part of cardiac pacemaker (principal) | CPT/HCPCS: 93296 ==

== ENCOUNTER → 2024-09-30 09:47 | Outpatient (BNVA) | payer MEDICARE, OTHER, SELFPAY | PROVIDERS: PCP Internal Medicine; Visit Provider Internal Medicine Cardiovascular Disease | DX: I25.10 Atherosclerotic heart disease of native coronary artery without angina pectoris (principal); E78.5 Hyperlipidemia, unspecified; I11.0 Hypertensive heart disease with heart failure; I50.20 Unspecified systolic (congestive) heart failure; I25.5 Ischemic cardiomyopathy; Z79.82 Long term (current) use of aspirin; Z95.0 Presence of cardiac pacemaker; Z95.1 Presence of aortocoronary bypass graft | CPT/HCPCS: 99214 ==

== ENCOUNTER → 2025-01-05 10:41 | Outpatient (BNVA) | payer MEDICARE, OTHER, SELFPAY | PROVIDERS: PCP Internal Medicine; Visit Provider Internal Medicine Cardiovascular Disease | DX: Z45.018 Encounter for adjustment and management of other part of cardiac pacemaker (principal) | CPT/HCPCS: 93296 ==

== ENCOUNTER 2025-01-26 06:00 | Outpatient (RCR) | payer MEDICARE, OTHER, SELFPAY | END 2025-02-13 23:59 | disposition home or self-care (01) | LOC: APT 06:00 | PROVIDERS: Visit Provider Orthopaedic Surgery | DX: M17.0 Bilateral primary osteoarthritis of knee (principal) | CPT/HCPCS: 97110; 97162 ==

== ENCOUNTER 2025-02-14 06:30 | Outpatient (RCR) | payer MEDICARE, OTHER, SELFPAY | END 2025-03-15 23:59 | disposition home or self-care (01) | LOC: APT 06:30 | PROVIDERS: Visit Provider Orthopaedic Surgery | DX: M17.0 Bilateral primary osteoarthritis of knee (principal) | CPT/HCPCS: 97110 ==

== ENCOUNTER → 2025-04-13 10:37 | Outpatient (BNVA) | payer MEDICARE, OTHER, SELFPAY | PROVIDERS: Visit Provider Internal Medicine Cardiovascular Disease | DX: Z45.018 Encounter for adjustment and management of other part of cardiac pacemaker (principal) | CPT/HCPCS: 93296 ==

== ENCOUNTER → 2025-05-20 08:58 | Outpatient (BNVA) | payer MEDICARE, OTHER, SELFPAY | PROVIDERS: PCP Internal Medicine; Visit Provider Nurse Practitioner Family | DX: I35.9 Nonrheumatic aortic valve disorder, unspecified (principal); I25.10 Atherosclerotic heart disease of native coronary artery without angina pectoris; I10 Essential (primary) hypertension; Z95.1 Presence of aortocoronary bypass graft; Z95.0 Presence of cardiac pacemaker; Z87.891 Personal history of nicotine dependence | CPT/HCPCS: 99214 ==